=== PATIENT | male | born 2005 | race Caucasian/White ===

== ENCOUNTER 2023-07-22 19:48 | Emergency (ER) | payer OTHER ==
[2023-07-22 20:06] VITALS: BP 146/84; O2SAT 100
--- NOTE | 2023-07-22 20:28 | XRAY Report ---
PROCEDURE: Foot 3+V RT INDICATIONS: puncture wound TECHNIQUE: 3 views of the foot were acquired. COMPARISON: None. FINDINGS: Bones: No acute fractures or dislocations. No suspicious bony lesions. Soft tissues: Nonspecific soft tissue edema. No suspicious calcification. No radiopaque foreign body. IMPRESSION: Nonspecific soft tissue edema. No acute osseous abnormality. No radiopaque foreign body. If there is clinical concern or persistent symptoms, additional imaging such as repeat radiographs or advanced im aging (e.g. CT, MRI) may be helpful for further evaluation. Reviewed by: Jose Eduardo See MD on 07/22/2023 8:26 PM PDT Approved by: Jose Eduardo See MD on 07/22/2023 8:26 PM PDT Station ID: [id number]
--- NOTE | 2023-07-22 21:16 | ED Physician Documentation ---
PD HPI UPPER EXT INJURY - Stated complaint Stated Complaint: STEPPED ON NAIL - Chief complaint Chief Complaint: Trauma Ext - History obtained from History obtained from: Patient (18-year-old gentleman with tetanus shot about 9 years ago stepped on a nail through his shoe while at work at 3 PM today.) PD PAST MEDICAL HISTORY - Past Medical History Past Medical History: No - Past Surgical History Past Surgical History: No - Present Medications Home Medications: Ambulatory Orders Medication Instructions Recorded Confirmed No Known Home Medications 07/22/23 07/22/23 - Allergies Allergies/Adverse Reactions: Allergies Allergy/AdvReac Type Severity Reaction Status Date / Time No Known Drug Allergies Allergy Verified 07/22/23 19:53 - Social History Does the pt smoke?: No - Immunizations Immunizations: TDAP current <10years PD ED PE NORMAL - Vitals Vital signs reviewed: Yes - General General: Alert and oriented X 3, No acute distress - Extremities Extremities: Other (There is a very diminutive puncture wound not looking like it goes deep on the ball of the plantar surface of the right foot. No tenderness anywhere.) - Neuro Neuro: Alert and oriented X 3 Results - Vitals Vitals: Vital Signs - 24 hr 07/22/23 19:52 Temperature 36.7 C Heart Rate 88 Respiratory 16 Rate Blood Pressure 146/84 H O2 Saturation 100 Oxygen O2 Source Room air - Rads (name of study) Three-view x-ray of the right foot was unremarkable. Relevant Findings:: Final report received, EMP independent interpretation of test PD Medical Decision Making - ED course Complexity details: other (L&[place] paperwork [id number] completed and submitted.) ED course: His tetanus was borderline it was updated, the wound does not look deep enough to require any specific wound care or prophylactic antibiotics though. Departure - Departure Disposition: 01 Home, Self Care Clinical Impression: Puncture wound of plantar aspect of foot Qualifiers: Encounter type: initial encounter Laterality: right Qualified Code(s): S91.331A - Puncture wound without foreign body, right foot, initial encounter Condition: Good Record reviewed to determine appropriate education?: Yes Instructions: ED Wound Puncture General Comments: Note for your records that your tetanus was updated today. The wound itself looks pretty minor but return if you were to develop signs of infection which would include increased pain, redness, swelling, drainage, or fever. Forms: PCP List
[2023-07-22] MEDS: TETANUS/DIPHTHERIA/PERTUSSIS 0.5 ML SYRINGE IM ONE (21:21)
== END 2023-07-22 21:34 | disposition home or self-care (01) ==
LOC: ED 19:48
DX: S91.331A Puncture wound without foreign body, right foot, initial encounter (principal); W45.0XXA Nail entering through skin, initial encounter; Y92.89 Other specified places as the place of occurrence of the external cause; Y99.0 Civilian activity done for income or pay; Z23 Encounter for immunization
CPT/HCPCS: 1040M; 73630; 90471; 90715; 99283